=== PATIENT | female | born 1945 | race Caucasian/White ===

== ENCOUNTER 2023-12-24 18:48 | Emergency (ER) | payer MEDICARE, OTHER ==
[2023-12-24] MEDS ORDERED: Sodium Chloride 0.9% 10 ML Syringe FLUSH PRN (19:41)
[2023-12-24 20:53] LABS: BASOPHILS PERCENT AUTO 0.9 % (0.0-1.0); EOSINOPHILS ABSOLUTE AUTO 0.4 K/mm3 (0.0-0.4); EOSINOPHILS PERCENT AUTO 8.5 % (0.0-6.0); HEMATOCRIT 33.2 % (37.0-47.0); IMMATURE GRAN ABSOLUTE AUTO 0.01 K/mm3 (0.00-0.05); IMMATURE GRAN PERCENT AUTO 0.2 % (0.0-0.4); LYMPHOCYTES ABSOLUTE AUTO 1.2 K/mm3 (1.0-4.8); MEAN CORPUSCULAR HEMOGLOBIN 30.8 pg (28.0-32.0); MEAN CORPUSCULAR HGB CONC 33.1 g/dl (32.0-36.0); MEAN PLATELET VOLUME 9.2 fl (9.4-12.3); MONOCYTES ABSOLUTE AUTO 0.5 K/mm3 (0.0-0.8); MONOCYTES PERCENT AUTO 10.7 % (0.0-8.0); NEUTROPHILS ABSOLUTE AUTO 2.4 K/mm3 (1.8-7.7); NEUTROPHILS PERCENT AUTO 52.7 % (41.0-71.0); PLATELET COUNT,PLT 134 K/mm3 (150-400); RED BLOOD CELL COUNT 3.57 M/mm3 (4.10-5.30); WHITE BLOOD CELL COUNT,WBC 4.48 K/mm3 (3.9-11.3)
[2023-12-24 21:23] LABS: ALBUMIN 3.7 g/dl (3.4-5.0); ANION GAP 13.9 (5-15); BILIRUBIN TOTAL 0.4 mg/dL (0.2-1.0); BUN/CREATININE RATIO 29.2 (14-18); CALCIUM 9.4 mg/dL (8.5-10.1); CREATININE 1.2 mg/dL (0.55-1.02); EST CRCL DRUG DOSING (CG) 26.86 mL/min; POTASSIUM,K 4.9 mEq/L (3.5-5.1); PROTEIN TOTAL,TP 7.4 g/dl (6.4-8.2)
[2023-12-24] MEDS: Iopamidol 755 Mg/ML 100 ML Bottle IVPUSH ONE (21:35)
[2023-12-24] MEDS: Sodium Chloride 0.9% 100 ML IV SCH (21:35)
== END 2023-12-24 22:38 | disposition home or self-care (01) ==
LOC: JD.ED 18:48
DX: R07.89 Other chest pain (principal); R91.1 Solitary pulmonary nodule; M79.605 Pain in left leg; I10 Essential (primary) hypertension; Z90.710 Acquired absence of both cervix and uterus; Z87.891 Personal history of nicotine dependence
CPT/HCPCS: 36415; 71275; 80053; 84484; 85025; 93005; 93971; 99285; J3490; Q9967; 93010; 99284

== ENCOUNTER 2024-06-13 16:59 | Emergency (ER) | payer MEDICARE, OTHER ==
[2024-06-13] MEDS: Acetaminophen 325 MG Tab PO ONE (19:01)
== END 2024-06-13 19:08 | disposition home or self-care (01) ==
LOC: JD.ED 16:59
DX: M25.561 Pain in right knee (principal); M25.562 Pain in left knee; I10 Essential (primary) hypertension; Z90.710 Acquired absence of both cervix and uterus; W01.0XXA Fall on same level from slipping, tripping and stumbling without subsequent striking against object, initial encounter
CPT/HCPCS: 73562; 99284; A9270; 99283

== ENCOUNTER 2024-07-27 18:25 | Emergency (ER) | payer MEDICARE, OTHER | END 2024-07-27 18:43 | disposition left against medical advice (07) | LOC: JD.ED 18:25 | DX: Z53.21 Procedure and treatment not carried out due to patient leaving prior to being seen by health care provider (principal) ==

== ENCOUNTER 2024-11-23 07:00 | Day surgery (SDC) | payer MEDICARE, OTHER ==
[~2024-11-23 07:00] MED LIST: Sodium Chloride 0.9% 10 ML Syringe FLUSH PRN; Sodium Chloride 0.9% 10 ML Syringe FLUSH SCH
[2024-11-23] MEDS: Lactated Ringers 1,000 ML IV SCH (07:00)
[2024-11-23] MEDS ORDERED: Propofol 200 MG/20 ML SDV ONE ×2 (07:10→08:16)
[2024-11-23] MEDS ORDERED: Ketamine 200 MG/20 ML MDV ONE (07:11)
[2024-11-23] MEDS ORDERED: Ondansetron 4 MG/2 ML SDV ONE (08:03)
[2024-11-23] MEDS: Lidocaine 1% 10 ML MDV ONE (08:09)
[2024-11-23] MEDS: Bupivacaine 0.5% 10 ML SDV ONE (08:09)
[2024-11-23] MEDS ORDERED: ceFAZolin 2 GM Vial ONE (08:10)
[2024-11-23] MEDS ORDERED: Ketorolac 30 MG/ML SDV ONE (08:15)
== END 2024-11-23 11:05 ==
LOC: JD.SDS 07:00
PROVIDERS: ATTEND Podiatrist Foot & Ankle Surgery
DX: M89.8X7 Other specified disorders of bone, ankle and foot (principal); M19.072 Primary osteoarthritis, left ankle and foot; M79.672 Pain in left foot; I12.9 Hypertensive chronic kidney disease with stage 1 through stage 4 chronic kidney disease, or unspecified chronic kidney disease; N18.30 Chronic kidney disease, stage 3 unspecified; E78.5 Hyperlipidemia, unspecified; Z79.82 Long term (current) use of aspirin; Z79.899 Other long term (current) drug therapy; Z87.891 Personal history of nicotine dependence
CPT/HCPCS: 28100; J0665; J0690; J1885; J2003; J2405; J2704; J3490; J7120; 01480; 99100